=== PATIENT | female | born 1990 | race Caucasian/White ===

== ENCOUNTER 2020-11-08 08:13 | Outpatient (NON) | payer BC, SELFPAY ==
[2020-11-08 21:13] LABS: SARS-CoV-2 RNA PCR Negative
== END 2020-11-08 08:14 ==
PROVIDERS: PCP Family Medicine; Visit Provider Family Medicine
DX: R19.7 Diarrhea, unspecified (principal); R51.9 Headache, unspecified; Z20.822 Contact with and (suspected) exposure to COVID-19
CPT/HCPCS: C9803; U0003; U0005

== ENCOUNTER 2024-02-12 13:36 | Outpatient (CLI) | payer OTHER, SELFPAY ==
--- NOTE | ~2024-02-12 | XR_ITS ---
EXAMINATION: XR lumbar spine min 4V DATE: 02/12/2024 14:15 INDICATION: Dorsalgia. TECHNIQUE: 5 views of lumbar spine were obtained. COMPARISON: None. FINDINGS: There is 4 degrees levocurvature of lumbar spine. Vertebral body heights are normal. Interv ertebral disc heights are normal. There is multilevel facet joint osteoarthritis, moderate in the low er lumbar spine. There is an intrauterine device in expected position. IMPRESSION: 1. Lumbar facet joint osteoarthritis. Reviewed, dictated and finalized at location A.
--- NOTE | ~2024-02-12 | XR_ITS ---
EXAMINATION: XR hip RT min 2V DATE: 02/12/2024 14:15 INDICATION: Right hip pain. TECHNIQUE: 2 views of right hip were obtained. COMPARISON: None. FINDINGS: Bone alignment is normal. No fracture. Right hip joint space is normal. There is an intraut erine device in expected position. IMPRESSION: 1. Normal right hip. Reviewed, dictated and finalized at location A. IMPRESSION: 1. Normal right hip.
== END 2024-02-12 13:37 | disposition home or self-care (01) ==
LOC: ANHIMG 13:38
PROVIDERS: PCP Family Medicine; Visit Provider Physician Assistant
DX: M47.896 Other spondylosis, lumbar region (principal); M25.551 Pain in right hip
CPT/HCPCS: 72110; 73502

== ENCOUNTER 2024-03-10 13:59 | Outpatient (CLI) | payer OTHER, SELFPAY ==
--- NOTE | ~2024-03-10 | XR_ITS ---
EXAMINATION: XR chest 2V 03/10/2024 14:21 INDICATION: Shortness of breath. History of pulmonary embolism. PROCEDURE: 2 view chest COMPARISON: Comparison to multiple prior studies sequentially, with oldest reviewed study dated 02/23/2018. FINDINGS: The lungs are clear. The cardiomediastinal silhouette is within normal limits. There are no pleural effusions. There is no pneumothorax suspected. IMPRESSION: 1: NO ACUTE CARDIOPULMONARY DISEASE. Reviewed, dictated and finalized at location B.
== END 2024-03-10 14:00 | disposition home or self-care (01) ==
LOC: ANHIMG 14:01
PROVIDERS: PCP Family Medicine; Visit Provider Physician Assistant
DX: R06.02 Shortness of breath (principal)
CPT/HCPCS: 71046

== ENCOUNTER 2024-04-30 14:44 | Outpatient (CLI) | payer OTHER, SELFPAY ==
--- NOTE | 2024-04-30 20:34 | P.PCNPFT_ITS ---
PFT Procedure Performed PFT Procedure Performed Spirometry with Pre/Post Bronchodilator Plethysmography (Lung Vol) Diffusing Cap (DLCO) Flow Vol Loop PFT Interpretation DOS: 04/30/2024 REQUESTING: Coby Connell PA-C REASON FOR TESTING: Shortness of breath PULMONARY FUNCTION TESTS Results are reliable and reproducible. Repeatability of spirometry FEV1 maneuver pre and post bronchodilator is Grade A. Spirometry: The pre-bronchodilator FEV1 is 3.27 L, 102%, normal. The pre-bronchodilator FVC is 3.96 L, 104%, normal. The FEV1/FVC ratio is 83%, normal. After bronchodilator, the FEV1 is 3.42 L, 107%, +5 per. The post bronchodilator FVC is 4.04 L, 106%, +2%. The FEV1/FVC ratio is 85%. Lung volumes: The total lung capacity is 4.84 L, 95%, normal. The residual volume is 0.81 L, 57%, normal. The RV/TLC is 17%, normal. FRC is 1.45 L, 52%, decreased. Normal airway resistance. Diffusion: DLCO is 19.7, 80%, normal. The DLCO/VA is 4.15, 85%, normal. Flow volume loop: The flow volume loop is normal. IMPRESSION: This study shows normal spirometry without response to bronchodilat or, normal lung volumes and normal diffusion. No prior studies to compare. Faiza Grissom MD
== END 2024-04-30 14:45 | disposition home or self-care (01) ==
PROVIDERS: PCP Family Medicine; Visit Provider Physician Assistant
DX: R06.09 Other forms of dyspnea (principal)
CPT/HCPCS: 94060; 94726; 94729

== ENCOUNTER 2024-07-29 13:24 | Outpatient (CLI) | payer OTHER, SELFPAY ==
--- NOTE | ~2024-07-29 | MMUS_ITS ---
EXAMINATION: MM diagnostic stuart BI w tom, US breast LT limited HISTORY: Palpable left breast abnormality TECHNIQUE: Additional 3-D tomosynthesis images of the breasts were performed and synthetic 2-D images were generated. CAD analysis was submitted and interpreted. High resolution Limited left breast ultr asound was performed. COMPARISON: None BREAST PARENCHYMAL COMPOSITION: Not Dense: The breasts are almost entirely fatty. FINDINGS: MAMMOGRAPHIC FINDINGS: There are no suspicious masses, calcifications or architectural distortion in either breast to sugges t malignancy. ULTRASOUND: Limited left breast ultrasound: Normal heterogeneous echotexture without focal solid or cystic mass. IMPRESSION: 1. No evidence for malignancy in either breast. 2. Recommend follow-up screening mammogram at age 40. BI-RADS CATEGORY 1 - NEGATIVE Reviewed, dictated and finalized at location B. IMPRESSION: 1. No evidence for malignancy in either breast. 2. Recommend follow-up screening mammogram at age 42. BI-RADS CATEGORY 1 - NEGATIVE
== END 2024-07-29 13:25 | disposition home or self-care (01) ==
LOC: ANHIMG 13:25
PROVIDERS: PCP Family Medicine; Visit Provider Family Medicine
DX: N63.20 Unspecified lump in the left breast, unspecified quadrant (principal)
CPT/HCPCS: 76642; 77062; 77066; G0279

== ENCOUNTER 2024-09-14 09:31 | Emergency (ER) | payer OTHER, SELFPAY ==
--- NOTE | ~2024-09-14 | CT_ITS ---
EXAMINATION: CT brain wo con DATE: 09/14/2024 14:42 INDICATION: Fall. Decreased hearing. TECHNIQUE: Computed tomography (CT) of the head was performed without intravenous contrast. The mA wa s adjusted according to patient size. Iterative reconstruction technique was employed. The dose-lengt h product was 681.00 mGy-cm. COMPARISON: Head CT 02/23/2018 FINDINGS: Dolichocephaly is noted. There is no intracranial hemorrhage, acute infarction, or abnormal intracranial mass lesion. The ventricles are normal in size. 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 The orbits are normal. The mastoid air cells are normal. IMPRESSION: 1. Normal brain. Reviewed, dictated and finalized at location A. WARE BUILD ENGINEER IMPRESSION: 1. Normal brain.
--- NOTE | ~2024-09-14 | CT_ITS ---
EXAMINATION: CT lumbar spine wo con DATE: 09/14/2024 14:42 INDICATION: Low back pain. Fall. TECHNIQUE: Computed tomography (CT) of the lumbar spine was performed without intravenous contrast. A utomated exposure control and iterative reconstruction technique were employed. The dose-length produ ct was 1267.82 mGy-cm. COMPARISON: None FINDINGS: There is an intrauterine device in expected position. There is 3 degrees levocurvature of t horacolumbar spine. There is a burst fracture of superior endplate of L1 with 2/5 loss of height and retropulsion of bone 2 mm into central spinal canal. There is mildly decreased disc height at L4-L5 a nd L5-S1. The following disc levels are specifically discussed: L1-L2: The disc does not extend beyond the endplate margin. There is mild bilateral facet joint osteo arthritis. There is no neural foraminal stenosis. There is no central canal stenosis. L2-L3: The disc does not extend beyond the endplate margin. There is mild bilateral facet joint osteo arthritis. There is no neural foraminal stenosis. There is no central canal stenosis. L3-L4: The disc does not extend beyond the endplate margin. There is moderate right and mild left fac et joint osteoarthritis. There is no neural foraminal stenosis. There is no central canal stenosis. L4-L5: The disc is bulging. There is severe bilateral facet joint osteoarthritis. There is mild bilat eral neural foraminal stenosis. There is no central canal stenosis. L5-S1: The disc is bulging. There is moderate bilateral facet joint osteoarthritis. There is mild lef t neural foraminal stenosis. There is mild central canal stenosis. IMPRESSION: 1. Acute versus subacute L1 burst fracture. 2. Mild lumbar spondylosis. Reviewed, dictated and finalized at location A. NTIFIC PROCESS OPERATOR
[2024-09-14 09:35] VITALS: BP 138/86; PULSE 100; RESP 18; TEMP 36.4; O2SAT 100
[2024-09-14 12:10] VITALS: BP 141/86; PULSE 100; RESP 17; TEMP 36.9; O2SAT 100
--- NOTE | 2024-09-14 12:53 | ED_ITS ---
HPI - Fall General Chief Complaint: Fall Stated Complaint: fall/back pain/ hit head Time Seen by Provider: 09/14/24 12:01 History of Present Illness HPI Narrative: 34-year-old female presenting after a fall. States that yesterday she missed a step which caused her to fall backwards striking her head. Does not think she lost consciousness but feels like she had decreased hearing in 1 of her ears for several minutes. Also landed on her back and complains of a lot of tailbone pain. No numbness or weakness. No further complaints. Related Data Home Medications Medication Instructions Recorded Confirmed bupropion HCl 150 mg 24 hr tablet, 150 mg PO QAM 11/19/23 04/21/24 extended release cariprazine 3 mg capsule (Vraylar) 3 mg PO DAILY 11/19/23 04/21/24 gabapentin 300 mg capsule 300 mg PO TID 11/19/23 04/21/24 sertraline 100 mg tablet 150 mg PO DAILY 11/19/23 04/21/24 Allergies Allergy/AdvReac Type Severity Reaction Status Date / Time hydrocodone Allergy Intermediate N/V Verified 09/14/24 09:38 latex Allergy Unknown Itching-MARQUES Verified 09/14/24 09:38 VES Review of Systems Review of Systems: All systems reviewed & are unremarkable except as noted in HPI and below PMFSH Past Medical History Medical History Chronic mixed headache syndrome Hypothyroidism Irritable bowel syndrome with diarrhea Major depressive disorder, recurrent, in partial remission Morbid obesity Personal history of pulmonary embolism Surgical History Surgical History History of turbinectomy 2006 Family History Family History Father Hypertension COPD (chronic obstructive pulmonary disease) Mother No problems noted. Sibling Depression Grandparent Diabetes mellitus Hypertension Breast cancer Lung cancer Other Family history of allergic disorder Family history of cardiovascular disease Family history of malignant neoplasm Social History Social History Smoking status: Never smoker Alcohol intake: current Drinks per week: 1 Substance use: current Substance use type: does not use and marijuana Do You Feel Safe in your Home?: Yes Lack of Transportation: No Lack of Food: Never True Current Housing: I Have Housing Concerned About Future Housing: No Difficulty Paying Gas/Electric Bills: No Difficulty Paying for Meds: No Currently Unemployed: No Education: Bachelor's Degree Difficulty w/ Childcare or Family Care: No Living arrangements: alone Occupation/Education: occupation 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 EYES: PERRLA and EOMI. ENT: Mucous membranes moist. NECK: Supple. No midline tenderness, there is bilateral paraspinal tenderness BACK: midline tenderness of lumbar spine CHEST: No respiratory distress. HEART: Regular rate and rhythm EXTREMITIES: Normal range of motion SKIN: Warm, dry, no rash. NEURO: Alert and oriented x3. PSYCH: Normal mood and affect. Course Vital Signs Vital signs: Vital Signs Temperature 97.6 F 09/14/24 09:35 Pulse Rate 100 09/14/24 09:35 Respiratory Rate 18 09/14/24 09:35 Blood Pressure 138/86 09/14/24 09:35 Pulse Oximetry 100 09/14/24 09:35 Oxygen Delivery Room Air 09/14/24 09:35 Temperature 97.9 F 09/14/24 17:37 Pulse Rate 89 09/14/24 17:37 Respiratory Rate 15 09/14/24 17:37 Blood Pressure 131/71 09/14/24 17:37 Pulse Oximetry 100 09/14/24 17:37 Oxygen Delivery Room Air 09/14/24 09:35 MDM - Fall MDM Narrative Medical decision making narrative: 34-year-old female presenting after a fall. Vitals are stable. Exam remarkable for the above. Patient has already taken Tylenol about an hour ago. CT brain without acute abnormalities. CT lumbar spine with acute versus subacute L1 burst fracture with 2 mm retropulsion of bone. On re-evaluation, the patient states that her pain has somewhat improved following the Flexeril and ibuprofen. Discussed the findings, she is agreeable with a Percocet. She has a history of nausea vomiting and [place] several also give the Zofran. Spoke with Neurosurgery who agrees with discharge and close outpatient follow-up. Recommends an LSO brace which has been provided. Patient reports improvement in her pain following the Percocet. She is safe for outpatient management. Will send in for oxycodone and Zofran. Discussed using Tylenol and ibuprofen as well. She will follow-up closely with Neurosurgery. Appropriate return precautions given. Discharged in stable condition. Differential Diagnosis Differential diagnosis: Likely compression fracture, concussion without loss of consciousness and other ( fall, closed head injury, vertebral fracture) Medical Records Attestation: I reviewed the patient's medical records. Lab Data Attestation: I reviewed the patient's lab results. Labs: Lab Results 09/14/24 Range/Units 14:12 POC Urine HCG, Qual Negative (Negative) Imaging Data Radiologist's impression: ITS Impressions Head CT 09/14/24 14:45 IMPRESSION: 1. Normal brain. Lumbar Spine CT 09/14/24 14:56 IMPRESSION: 1. Acute versus subacute L1 burst fracture. 2. Mild lumbar spondylosis. Critical Care Time Critical Care Time Critical Care Time: No Discharge Plan Discharge Clinical Impression: Burst fracture of lumbar vertebra, Closed head injury Patient Disposition: Home, Self-Care Condition: Stable Instructions: Antibiotic Form, Thoracolumbar Fracture (ED), Thoracolumbosacral Orthosis (DC) Additional Instructions: The imaging today shows a burst fracture involving your L1 vertebrae. Please use Tylenol and ibuprofen/naproxen for pain control. Alternate between the two so that you do not over do either one. You may use the oxycodone as needed. The Zofran is for nausea as needed. Follow up with the number below with neuro surgery as discussed. Please continue wearing the back brace. If your symptoms worsen, you develop numbness or weakness, lose control of your bladder or your bowels, or other concerning symptoms arise, please return to the ER. Prescriptions: New oxycodone 5 mg tablet 5 mg PO Q8H PRN (Reason: pain) Qty: 14 0RF ondansetron 4 mg tablet,disintegrating 4 mg PO Q8H PRN (Reason: nausea and vomiting) Qty: 14 0RF No Action Airsupra 90-80 mcg/actuation HFA aerosol inhaler 2 inh inhalation ONCE Qty: 5.9 0RF Rx Instructions: as a single dose; may repeat up to 6 doses per day (12 inhalations) gabapentin 300 mg capsule 300 mg PO TID Vraylar 3 mg capsule 3 mg PO DAILY bupropion HCl 150 mg tablet extended release 24 hr 150 mg PO QAM sertraline 100 mg tablet 150 mg PO DAILY levothyroxine 75 mcg tablet See Rx Instructions .ROUTE .COMPLEX Qty: 90 3RF Dose Instruction: TAKE 1 TABLET BY MOUTH ONCE DAILY IN THE MORNING ON AN EMPTY STOMACH Rx Instructions: TAKE 1 TABLET BY MOUTH ONCE DAILY IN THE MORNING ON AN EMPTY STOMACH amitriptyline 100 mg tablet 100 mg PO QHS Qty: 90 0RF Follow-up/Referrals: Olegario Beaver MD [Physician] - Christian Vallejo MD [Primary Care Provider] -
[2024-09-14] MEDS: CYCLOBENZAPRINE HCL 10 MG TABLET PO (13:27)
[2024-09-14] MEDS: IBUPROFEN 600 MG TABLET PO (13:27)
[2024-09-14] MEDS: ONDANSETRON HCL ODT 4 MG TABLET PO (15:45)
[2024-09-14] MEDS: oxyCODONE/ACETAMINOPHEN (*CRX) 5-325 MG TABLET 1 TABLET PO (15:45)
[2024-09-14 17:03] LABS: BEDSIDEPREGUCG Negative (Negative)
[2024-09-14 17:37] VITALS: BP 131/71; PULSE 89; RESP 15; TEMP 36.6; O2SAT 100
== END 2024-09-14 17:38 | disposition home or self-care (01) ==
PROVIDERS: Emergency Provider Emergency Medicine; PCP Family Medicine
DX: S09.90XA Unspecified injury of head, initial encounter (principal); S32.011A Stable burst fracture of first lumbar vertebra, initial encounter for closed fracture; E03.9 Hypothyroidism, unspecified; E66.01 Morbid (severe) obesity due to excess calories; Z68.41 Body mass index [BMI] 40.0-44.9, adult; K58.0 Irritable bowel syndrome with diarrhea; G44.89 Other headache syndrome; Z86.711 Personal history of pulmonary embolism; M47.816 Spondylosis without myelopathy or radiculopathy, lumbar region; W10.9XXA Fall (on) (from) unspecified stairs and steps, initial encounter
CPT/HCPCS: 70450; 72131; 81025; 99284; A9270

== ENCOUNTER 2024-10-01 12:34 | Outpatient (CLI) | payer OTHER, SELFPAY ==
--- NOTE | ~2024-10-01 | XR_ITS ---
EXAMINATION: XR sacrum coccyx min 2V DATE: 10/01/2024 13:13 INDICATION: Unspecified injury of pelvis, initial encounter. TECHNIQUE: 3 views of the sacrum and coccyx were obtained. COMPARISON: None. FINDINGS: Alignment is normal. No fracture. There is mild osteoarthritis of the sacroiliac joints. Th ere is mild lumbar spondylosis. There is an intrauterine device in expected position. IMPRESSION: 1. No fracture. Reviewed, dictated and finalized at location A. SPORTATION COORDINATOR IMPRESSION: 1. No fracture.
--- NOTE | ~2024-10-01 | XR_ITS ---
EXAMINATION: XR pelvis min 3V DATE: 10/01/2024 13:13 INDICATION: Unspecified injury of pelvis, initial encounter. TECHNIQUE: An anteroposterior view of the pelvis was obtained. COMPARISON: None. FINDINGS: Alignment is normal. No fracture. There is mild osteoarthritis of the sacroiliac joints. Th ere is an intrauterine device in expected position. IMPRESSION: 1. No fracture. Reviewed, dictated and finalized at location A. 2 SYSTEMS PROGRAMMER IMPRESSION: 1. No fracture.
== END 2024-10-01 12:35 | disposition home or self-care (01) ==
LOC: MICIMG 12:36
PROVIDERS: PCP Family Medicine; Visit Provider Family Medicine
DX: S39.93XA Unspecified injury of pelvis, initial encounter (principal); X58.XXXA Exposure to other specified factors, initial encounter
CPT/HCPCS: 72190; 72220

== ENCOUNTER 2024-11-18 15:06 | Outpatient (CLI) | payer OTHER, SELFPAY ==
--- NOTE | ~2024-11-18 | CT_ITS ---
EXAMINATION: CT lumbar spine wo con DATE: 11/18/2024 15:26 INDICATION: Burst fracture of unspecified vertebra. TECHNIQUE: Computed tomography (CT) of the lumbar spine was performed without intravenous contrast. A utomated exposure control and iterative reconstruction technique were employed. The dose-length produ ct was 845.61 mGy-cm. COMPARISON: Lumbar spine CT 09/14/2024 FINDINGS: There is a 2 mm stone in left kidney. There is an intrauterine device in expected position. There is a burst fracture of L1 with 2/5 loss of height and retropulsion of bone 2 mm into central s hamida canal. There is 8 degrees levocurvature at T12-L1. There is moderately decreased disc height at T12-L1 and mildly decreased disc height at L5-S1. The following disc levels are specifically discuss ed: T12-L1: The disc does not extend beyond the endplate margin. There is mild bilateral facet joint oste oarthritis. There is no neural foraminal stenosis. There is mild central canal stenosis. L1-L2: The disc does not extend beyond the endplate margin. There is mild bilateral facet joint osteo arthritis. There is no neural foraminal stenosis. There is no central canal stenosis. L2-L3: The disc does not extend beyond the endplate margin. There is mild bilateral facet joint osteo arthritis. There is no neural foraminal stenosis. There is no central canal stenosis. L3-L4: The disc does not extend beyond the endplate margin. There is moderate right and mild left fac et joint osteoarthritis. There is no neural foraminal stenosis. There is no central canal stenosis. L4-L5: The disc is bulging. There is severe bilateral facet joint osteoarthritis. There is mild later al neural foraminal stenosis. There is no central canal stenosis. L5-S1: There is a left central protrusion. There is severe bilateral facet joint osteoarthritis. Ther e is mild left neural foraminal stenosis. There is no central canal stenosis. IMPRESSION: 1. Subacute L1 burst fracture, stable from 09/14/2024. 2. Mild lumbar spondylosis. Reviewed, dictated and finalized at location A. USION FURNACE OPERATOR
== END 2024-11-18 15:07 | disposition home or self-care (01) ==
LOC: MICIMG 15:07
PROVIDERS: PCP Family Medicine; Visit Provider Nurse Practitioner Adult Health
DX: S32.001A Stable burst fracture of unspecified lumbar vertebra, initial encounter for closed fracture (principal)
CPT/HCPCS: 72131